=== PATIENT | female | born 1990 | race Caucasian/White ===

== ENCOUNTER 2020-02-14 15:40 | Outpatient (RCR) | payer OTHER, SELFPAY ==
[2020-02-14 16:30] VITALS: BP 131/73; PULSE 96
== END 2020-04-01 15:21 | disposition home or self-care (01) ==
LOC: ANHOBOP 15:40
PROVIDERS: Visit Provider Obstetrics & Gynecology
DX: O99.213 Obesity complicating pregnancy, third trimester (principal); E66.9 Obesity, unspecified; Z3A.33 33 weeks gestation of pregnancy
CPT/HCPCS: 59025

== ENCOUNTER 2020-03-30 18:54 | Inpatient (IN) | payer OTHER, SELFPAY ==
[2020-03-30] VITALS (13 sets, daily range): BP systolic 98–148; BP diastolic 53–78; PULSE 81–97; RESP 20; TEMP 36.3–36.4; BMI 48.4
--- NOTE | 2020-03-30 18:54 | LDADM ---
This patient, Katy Jane, was admitted to Labor/Delivery/Recovery 106 on 03/30/20 at 18:54. Plans for labor, pain management and were discussed with patient. Patient/family oriented to hospital policies and general routines including ID bracelet, bed and alarms, visiting hours, pain management, procedures, bathroom and other care routines, personal items, smoking policy, room service/diet and guest tray routines, security routines, and visiting hours. Patient/Family are encouraged to report perceived risks to care and to ask questions if they do not understand what they are told or what they should do. See OBIX for further documentation.
[2020-03-30] MEDS: AMPICILLIN 2 GM/NS 100 ML 2 GM/100 ML BAG IVPB (19:36)
[2020-03-30 19:37] LABS: Basophils Absolute Auto 0.1 K/mm3 (0.0-0.1); Basophils Percent Auto 0.5 % (0.2-1.2); Eosinophils Absolute Auto 0.3 K/mm3 (0-0.3); Eosinophils Percent Auto 2.2 % (0-4.4); Hemoglobin 10.3 g/dL (12.0-15.0); Immature Granulocyte Absolute 0.15 K/mm3 (0.00-0.031); Immature Granulocyte Percent A 1.2 % (0-0.5); Lymphocytes Absolute Auto 1.73 K/mm3 (0.9-3.2); Lymphocytes Percent Auto 13.3 % (18.3-44.2); Mean Corpuscular HGB Conc 32.2 g/dl (32-36); Mean Corpuscular Hemoglobin 25.4 pg (26-34); Mean Corpuscular Volume 78.8 fl (80-100); Mean Platelet Volume 9.5 fl (7.4-10.4); Monocytes Absolute Auto 0.9 K/mm3 (0.1-0.6); Monocytes Percent Auto 6.7 % (2.6-8.5); Neutrophils Absolute Auto 9.9 K/mm3 (1.3-6.7); Neutrophils Percent Auto 76.1 % (45.5-73.1); Platelet Count Result 365 k/mm3 (150-375); Red Blood Count 4.06 M/mm3 (4.2-5.4); Red Cell Distribution Width 16.9 % (11.5-14.5)
[2020-03-30] MEDS: LACTATED RINGERS 1,000 ML 125 ML IV CONT (19:37)
[2020-03-30] MEDS: DINOPROSTONE 10 MG VAG INSERT VAGINAL (19:55)
[2020-03-30] MEDS: AMPICILLIN 1 GM/NS 50 ML 1 GM/50 ML BAG IVPB (23:32)
[2020-03-31] VITALS (109 sets, daily range): BP systolic 100–141; BP diastolic 44–81; PULSE 64–104; RESP 20; TEMP 36–36.9; O2SAT 96–100
[2020-03-31] MEDS: AMPICILLIN 1 GM/NS 50 ML 1 GM/50 ML BAG IVPB ×5 (03:22→19:47)
[2020-03-31] MEDS: fentaNYL CITRATE INJ (*CRX) 100 MCG/2 ML VIAL 50 MCG IV PUSH (05:57)
[2020-03-31] MEDS: fentaNYL CITRATE INJ (*CRX) 100 MCG/2 ML VIAL IV PUSH (07:18)
--- NOTE | 2020-03-31 07:48 | WPDOBADMIT ---
Obstetrics - Admit Note Admission Note: record reviewed. No pertinent additions to the history and/or any subsequent changes in the physical findings that are not consistent with the expected course of the were found. 40 + weeks gestation complicated by obesity and +GBS Additions to the history and/or subsequent changes in the physical findings follow. None.
--- NOTE | 2020-03-31 07:57 | WPDANESEPP ---
Anes - Eval Pre Procedure Procedure: Labor epidural Date/Time: 03/31/20 07:57 Surgeon: jovany Preop Diagnosis: pain during labor Pre Op Diagnosis: IOL Patient Data Age: 29 Gender: F Height: 1.68 m Weight: 136.3 kg Last Vital Signs Temp 36.1 C L 03/31/20 03:30 Pulse 76 03/31/20 05:56 Resp 20 03/31/20 03:30 BP 134/69 03/31/20 05:56 Allergies Allergy/AdvReac Type Severity Reaction Status Date / Time No Known Allergies Allergy Unknown Verified 08/20/03 17:12 Home Medications Medication Instructions Recorded Confirmed Type PNV cmb#95-ferrous fumarate-FA 1 tablet PO DAILY 03/06/20 03/06/20 History [] Laboratory Tests 03/30/20 03/30/20 03/30/20 19:30 19:30 19:30 WBC 13.0 K/mm3 H K/mm3 (4.5-10.0) RBC 4.06 M/mm3 L M/mm3 (4.2-5.4) Hgb 10.3 g/dL L g/dL (12.0-15.0) Hct 32.0 % L % (37.0-47.0) MCV 78.8 fl L fl (80-100) MCH 25.4 pg L pg (26-34) MCHC 32.2 g/dl g/dl (32-36) RDW 16.9 % H % (11.5-14.5) Plt Count 365 k/mm3 k/mm3 (150-375) MPV 9.5 fl fl (7.4-10.4) Immature Gran % (Auto) 1.2 % H % (0-0.5) Neut % (Auto) 76.1 % H % (45.5-73.1) Lymph % (Auto) 13.3 % L % (18.3-44.2) [place] % (Auto) 6.7 % % (2.6-8.5) Eos % (Auto) 2.2 % % (0-4.4) Baso % (Auto) 0.5 % % (0.2-1.2) Lymph # (Auto) 1.73 K/mm3 K/mm3 (0.9-3.2) [place] # (Auto) 0.9 K/mm3 H K/mm3 (0.1-0.6) Eos # (Auto) 0.3 K/mm3 K/mm3 (0-0.3) Baso # (Auto) 0.1 K/mm3 K/mm3 (0.0-0.1) Abs Immat Gran (auto) 0.15 K/mm3 H K/mm3 (0.00-0.031) Absolute Neuts (auto) 9.9 K/mm3 H K/mm3 (1.3-6.7) Absolute Nucleated RBC 0.0 K/mm3 K/mm3 (0.0-0.012) Nucleated RBC % 0.0 % % (0.0-0.2) RPR Pending Blood Type O Positive Antibody Screen Negative Patient hx anesthesia problems: none Family hx anesthesia problems: none PMFSH Past Medical History Medical History (Updated 03/31/20 @ 07:58 by Gayle Briggs CRNA) IUP (intrauterine ), incidental Morbid obesity with BMI of 50.0-59.9, adult Social History Social History Smoking status: Former smoker Smoking end date: 03/30/20 Substance use: never Gender identity (if verbalized by the patient): Female Spiritual care concerns: No Exam Day of Procedure 03/31/20 07:57
[2020-03-31] MEDS: OXYTOCIN 30 UNITS/NS 500 ML 30 UNITS/500 ML BAG 6 UNITS IV CONT (08:10)
[2020-03-31 08:24] LABS: Rapid Plasma Reagin Non-Reactive (NonReactive)
[2020-03-31] MEDS: LACTATED RINGERS 1,000 ML 999 ML IV CONT ×2 (10:23→16:33)
[2020-03-31] MEDS: ONDANSETRON INJ 4 MG/2 ML VIAL IV PUSH ×2 (12:02→17:51)
[2020-03-31] MEDS: FAMOTIDINE 20 MG/2 ML VIAL IV PUSH (18:40)
[2020-04-01] VITALS (169 sets, daily range): BP systolic 89–150; BP diastolic 44–132; PULSE 62–122; RESP 16–20; TEMP 35.5–37.7; O2SAT 93–100
[2020-04-01] MEDS: LACTATED RINGERS 1,000 ML 125 ML IV CONT (00:58)
[2020-04-01] MEDS: ONDANSETRON INJ 4 MG/2 ML VIAL IV PUSH (00:58)
[2020-04-01] MEDS: AMPICILLIN 1 GM/NS 50 ML 1 GM/50 ML BAG IVPB ×2 (00:58→04:46)
--- NOTE | 2020-04-01 07:18 | WPDANESEFPP ---
Anes - Eval Final PreProcedure Day of Procedure 04/01/20 07:18 Patient weight: morbidly obese Heart: regular rate and rhythm Lungs: clear to auscultation Airway: Mallampati scale class II Neurological: alert and oriented ASA classification: III Emergent: no Anesthetic plan: proceed Anesthesia type and monitoring: regional (use existing epid) epidural and standard monitoring Informed Consent: The patient's anesthetic plan and its attendant risks and benefits were discussed with the patient/family/POA. Questions were solicited and answers provided to the satisfaction of the patient/family/POA.
--- NOTE | 2020-04-01 07:22 | PM.OBPNVD ---
OB - PN: Subj Subjective Date/time seen: 04/01/20 07:22Patient is a 29-year-old female who presented for induction of labor and reached 4 cm. She has failed to advance beyond 4 cm over many hours. He has reassuring heart tones. She is afebrile. We have agreed to proceed with delivery. She understands the risks, benefits, and alternatives. She has completed the informed consent process. OB - PN: Obj Data Labs CBC & Chem 7: 03/30/20 19:30 Labs: Laboratory Results - last 24 hr 03/30/20 19:30 RPR Non-reactive OB - PN A/P Time Spent With Patient Time: Total time spent is greater than 50% in coordination of care (as documented) at patient's floor/unit and/or counseling patient:
[2020-04-01] MEDS: ceFAZolin 3 GM/D5W 100 ML 100 ML IVPB (07:25)
[2020-04-01] MEDS: KETOROLAC 30 MG/ML VIAL (*BKC) IV PUSH ×2 (08:00→13:57)
--- NOTE | 2020-04-01 08:28 | P.OP_ITS ---
Procedure Note - Detailed Date of procedure: 04/01/20 Pre-op diagnosis: IOL Term gestation, Failure to Progress Post-op diagnosis: same Procedure performed: low-transverse delivery Description of procedure: The patient was taken the operating room. She was prepped and draped in the dorsal supine position with leftward tilt after induction of spinal anesthetic. When anesthesia was found to be adequate a low- transverse skin incision was made and carried down to the level the fascia with the knife. The fascial incision was made at the midline with a scalpel. The fascial incision was extended laterally with Welch scissors. The fascia was tented upward superior and inferior with Mere clamps. The rectus muscles were dissected off bluntly. The rectus muscles at the midline. The preperitoneal fat was dissected bluntly at the superior aspect of the separate the rectus muscles. The peritoneal cavity was entered bluntly in the same area. The peritoneal incision was extended superior and inferior with good visualization of bladder. Bladder blade was inserted. A low-transverse incision was made on the uterus with the scalpel. It was carried down the level of the amniotic cavity with a knife. The amniotic cavity bluntly. The uterine incision was made laterally with blunt traction. The infant was delivered. The cord was clamped and cut. The infant was handed off to waiting pediatric staff. Cord bloods were obtained. The placenta was removed manually. The uterus was exteriorized. Uterus cleared of all clots and debris. Uterus closed in 0 Vicryl in a running locked fashion. An imbricating layer of 0 Vicryl was also placed on the to bolster the closure. The uterus was returned to the abdomen. The gutters were cleared of all clots and debris. The fascia was closed 0 Vicryl in a running fashion. Subcutaneous tissue was irrigated and bleeding areas were cauterized. The skin was closed with subcuticular absorbable arsen. The incision was covered with derma ramos. The patient tolerated the procedure well. She was taken recovery room stable condition. Sponge, lap, needle counts were correct x2. Anesthesia: spinal Surgeon: Maye Cho MD Estimated blood loss (mL): 350 Drains: No Packing: No Pathology: none sent Complications: No immediate complications Condition: stable Disposition: floor Findings: Normal maternal anatomy. Average size with normal Apgars.
--- NOTE | 2020-04-01 10:43 | OBPPTRN ---
Patient transferred to post room #292 via stretcher at 1043. Support person present. Oriented to unit, room, information board, rooming in, admission packet and security measures. Patient verbalizes understanding.
[2020-04-01] MEDS: OXYTOCIN 30 UNITS/NS 500 ML 30 UNITS/500 ML BAG 125 UNITS IV CONT (11:30)
[2020-04-01] MEDS: HYDROcodone/acetaminophen (*CRX) 5-325 MG TABLET 1 TAB PO ×3 (13:57→23:06)
--- NOTE | 2020-04-01 14:25 | PC.NURSE ---
Consulted with patient, mother reports infant is eagerly waking and latching without difficulties or discomfort. Reviewed infant feeding cues, frequencies, duration of feedings, feeding elimination flow sheet, and signs of adequate intake. Demonstrated stimulation techniques to wake for feeding. Assisted with infant to breast. Reviewed positioning/alignment in cross cradle, holding breast in U hold and guided asymmetrical latch on. Discussed rational for each. was able to latch correctly. nursed eagerly, with steady draws and frequent swallowing noted. Reviewed signs of a correct latch, effective nursing and suck swallow ratio. Infant was able to maintain latch without discomfort to mother. Nipple care reviewed. Advised to stimulate to keep infant awake and nursing effectively for increased intake and to assist with maintaining deep latch. Demonstrated how to adjust latch more deeply while feeding. Instructed mother to call out for RN assistance if she is unable to latch for feeding or she has discomfort with nursing. Instructed feeding should be initiated three hours from start of last feeding or if feeding cues are noted before. Mother voiced understanding of information shared.
[2020-04-01] MEDS: DEXTROSE 5%/0.45% SOD CHL 1,000 ML 125 ML IV CONT (15:17)
[2020-04-01] MEDS: DOCUSATE SODIUM 100 MG CAPSULE PO (17:24)
[2020-04-01] MEDS: IBUPROFEN 600 MG TABLET PO (23:06)
[2020-04-01] MEDS: ENOXAPARIN 40 MG/0.4 ML SYRINGE SUB-Q (23:07)
[2020-04-02 04:25] VITALS: BP 118/81; PULSE 81; RESP 16; TEMP 36.8
[2020-04-02] MEDS: IBUPROFEN 600 MG TABLET PO ×3 (04:25→22:10)
[2020-04-02] MEDS: HYDROcodone/acetaminophen (*CRX) 5-325 MG TABLET 1 TAB PO ×5 (04:25→22:11)
[2020-04-02 05:10] LABS: Basophils Percent Auto 0.4 % (0.2-1.2); Eosinophils Absolute Auto 0.1 K/mm3 (0-0.3); Eosinophils Percent Auto 0.5 % (0-4.4); Hematocrit 26.1 % (37.0-47.0); Hemoglobin 8.4 g/dL (12.0-15.0); Immature Granulocyte Absolute 0.13 K/mm3 (0.00-0.031); Immature Granulocyte Percent A 1.4 % (0-0.5); Lymphocytes Absolute Auto 1.12 K/mm3 (0.9-3.2); Lymphocytes Percent Auto 12.2 % (18.3-44.2); Mean Corpuscular HGB Conc 32.2 g/dl (32-36); Mean Corpuscular Hemoglobin 25.6 pg (26-34); Mean Corpuscular Volume 79.6 fl (80-100); Mean Platelet Volume 9.7 fl (7.4-10.4); Monocytes Absolute Auto 0.7 K/mm3 (0.1-0.6); Neutrophils Absolute Auto 7.1 K/mm3 (1.3-6.7); Neutrophils Percent Auto 77.5 % (45.5-73.1); Platelet Count Result 263 k/mm3 (150-375); Red Blood Count 3.28 M/mm3 (4.2-5.4); White Blood Count 9.2 K/mm3 (4.5-10.0)
[2020-04-02 08:00] VITALS: BP 135/93; PULSE 101; RESP 16; RESP 18; TEMP 36.1
[2020-04-02] MEDS: SIMETHICONE 80 MG TAB.CHEW PO ×2 (08:32→12:41)
[2020-04-02] MEDS: POLYSACCHARIDE IRON COMPLEX 150 MG CAPSULE PO ×2 (08:32→16:27)
[2020-04-02] MEDS: MULTIVIT/MIN/PREN/FOL AC/IRON TABLET 1 TAB PO (08:32)
[2020-04-02] MEDS: DOCUSATE SODIUM 100 MG CAPSULE PO ×2 (08:32→16:28)
--- NOTE | 2020-04-02 08:53 | PM.OBPNVD ---
OB - PN: Subj Subjective Date/time seen: 04/02/20 08:53 Patient comments: no complaints, pain well controlled, tolerating diet and flatus present OB - PN: Obj Data Labs CBC & Chem 7: 04/02/20 04:16 Labs: Laboratory Results - last 24 hr 04/02/20 04:16 WBC 9.2 RBC 3.28 L Hgb 8.4 L Hct 26.1 L MCV 79.6 L MCH 25.6 L MCHC 32.2 RDW 17.0 H Plt Count 263 MPV 9.7 Immature Gran % (Auto) 1.4 H Neut % (Auto) 77.5 H Lymph % (Auto) 12.2 L [place] % (Auto) 8.0 Eos % (Auto) 0.5 Baso % (Auto) 0.4 Lymph # (Auto) 1.12 [place] # (Auto) 0.7 H Eos # (Auto) 0.1 Baso # (Auto) 0.0 Abs Immat Gran (auto) 0.13 H Absolute Neuts (auto) 7.1 H Absolute Nucleated RBC 0.0 Nucleated RBC % 0.0 OB - PN A/P Plan day: 1 Comments: Post Op LTCS - no problems, routine recovery Time Spent With Patient Time: Total time spent is greater than 50% in coordination of care (as documented) at patient's floor/unit and/or counseling patient: Exam Const: General: cooperative, healthy appearing, comfortable and no acute distress Resp: Auscultation: no crackles, no rales, no rhonchi and no wheezes Cardio: Rhythm: regular rhythm Heart sounds: no click and no murmurs GI: Inspection: non-distended Auscultation: normal bowel sounds Extrem: General: normal to inspection, no pedal edema and no calf tenderness
--- NOTE | 2020-04-02 09:03 | WPDANLDPN2 ---
Anes-Prog Note L&D Date/Time: 04/02/20 09:03 Comfortable throughout: section Neuraxial method: spinal Epidural/Spinal procedure site: clean & non-tender Neuro status: Neuro function grossly intact. Cardiovascular status: normal Respiratory status: normal Airway patency: baseline Mental status: baseline Post-Op hydration status: normal Vital Signs: Last Vital Signs Temp 36.8 C 04/02/20 04:25 Pulse 81 04/02/20 04:25 Resp 16 04/02/20 04:25 BP 118/81 04/02/20 04:25 Pulse Ox 99 04/01/20 14:00 Pain score (VAS): 0 I/O: Intake & Output 04/01/20 04/02/20 04/02/20 23:59 07:59 15:59 Intake Total 1000 Output Total 3250 2300 Balance -2250 -2300 Post-procedural complaints: none Patient feedback: Patient satisfied with anesthetic care.
--- NOTE | 2020-04-02 09:03 | WPDANLDNPN2 ---
Anes-Prog Note L&D-Neuraxial Date/Time: 04/02/20 09:03 Neuraxial medications: intrathecal PF morphine Opiod-related complaints: none Patient feedback: Patient satisfied with post-operative pain management.
--- NOTE | 2020-04-02 14:00 | PC.NURSE ---
Consulted with patient, mother states she has been supplementing and/or supplementing after breastfeedings. Mother is concerned is not getting enough. Mother states infant is freq sleepy and does not feed on both breasts. Reviewed this is normal and infant may not take both breasts per feeding. Reviewed adequate sign of intake for the . Stressed mother may supplement if she chooses. Reviewed infant feeding cues, frequencies, duration of feedings, feeding elimination flow sheet, and signs of adequate intake. Demonstrated stimulation techniques to wake for feeding. Assisted with to breast. Reviewed positioning/alignment, holding breast and asymmetrical latch on. Within a few attempts was able to latch correctly. nursed eagerly, with steady draws and frequent swallowing noted. Reviewed signs of a correct latch, effective nursing and suck swallow ratio. was able to maintain latch without discomfort to mother. Nipple care reviewed. Advised to stimulate while feeding to keep infant awake and nursing effectively for increased intake and assist with maintaining deep latch. Demonstrated how to adjust latch more deeply while feeding. Instructed mother to call out for RN assistance if she is unable to latch infant for feeding or she has discomfort with nursing. Instructed feeding should be initiated three hours from start of last feeding or if feeding cues are noted before. Mother voiced understanding of information shared.
[2020-04-02 19:45] VITALS: BP 130/75; PULSE 103; RESP 18; TEMP 36.4; O2SAT 98
[2020-04-02] MEDS: ENOXAPARIN 40 MG/0.4 ML SYRINGE SUB-Q (23:42)
[2020-04-03] MEDS: HYDROcodone/acetaminophen (*CRX) 5-325 MG TABLET 1 TAB PO ×2 (04:27→09:36)
[2020-04-03] MEDS: IBUPROFEN 600 MG TABLET PO (04:28)
[2020-04-03 07:00] VITALS: BP 137/71; PULSE 75; RESP 20; TEMP 36.2
--- NOTE | 2020-04-03 08:57 | P.DS_ITS ---
DS: Admitting Diagnosis Admitting Diagnosis Admitting Diagnosis: IOL DS: Discharge Diagnosis Discharge Diagnosis (1) delivery delivered: Code(s): O82 - Encounter for delivery without indication Status: Acute (2) Failure to progress in labor: Code(s): O62.2 - Other uterine inertia Status: Acute OB - DS: Summary OB Procedures : NST and Ultrasound OB Procedures Intrapartum: OB Procedures: : None Peripartum Data Infant Delivery Method: Natural Vaginal Procedures: Procedures Operation Date: 04/01/20 07:30 Actual Procedures Side Surgeon p Section Maye Cho MD Time Spent with Patient Time attestation: Total time spent providing and/or coordinating discharge services: Discharge Plan Discharge Discharging Clinician: Maye Cho Patient Disposition: Home, Self-Care Activity: pelvic rest Diet: regular Patient Instructions: Antibiotic Form Stand Alone Forms: General Discharge Information Follow-up/Referrals: Maye Coh MD [Physician] - Discharge Medications: No Action PNV cmb#95-ferrous fumarate-FA [] 28 mg iron- 800 mcg Tablet 1 tablet PO DAILY RF: 0 Date of admission: 03/30/20 18:54 Primary Care Provider: PHYSICIAN,PIE ICER MACHINE Admitting Provider: Maye Cho Attending physician on admission: Maye Cho
--- NOTE | 2020-04-03 08:57 | PM.OBPNVD ---
OB - PN: Subj Subjective Date/time seen: 04/03/20 08:57 Patient comments: no complaints, pain well controlled, incisional pain, tolerating diet and flatus present OB - PN: Obj Data Labs CBC & Chem 7: 04/02/20 04:16 OB - PN A/P Plan day: 2 Plan: routine care Comments: POD#2 LTCS - no problems, to d/c Time Spent With Patient Time: Total time spent is greater than 50% in coordination of care (as documented) at patient's floor/unit and/or counseling patient: Exam Const: General: comfortable, no acute distress and alert Resp: Effort & Inspection: normal respiratory effort Auscultation: no crackles, no rales and no rhonchi Cardio: Rate: regular rate Heart sounds: no click, no murmurs and no rubs GI: Inspection: non-distended GI Palp: No Tenderness to palpation present (GI) Auscultation: normal bowel sounds Other: Incision - CDI Extrem: General: normal to inspection, no pedal edema and no calf tenderness
[2020-04-03] MEDS: POLYSACCHARIDE IRON COMPLEX 150 MG CAPSULE PO (09:35)
[2020-04-03] MEDS: MULTIVIT/MIN/PREN/FOL AC/IRON TABLET 1 TAB PO (09:35)
[2020-04-03] MEDS: DOCUSATE SODIUM 100 MG CAPSULE PO (09:36)
[2020-04-03] MEDS: TETANUS,DIPHTHERIA,AC PERTUSSIS ADULT (0.5 ML) BOOSTRIX IM (09:36)
--- NOTE | 2020-04-05 21:24 | PC.NURSE ---
04/05/2020 at approximately 1950. This discharged patient Katy Jane, phone number [phone], called and said she is unable to come to her follow up appointment tomorrow, April 06 at 10:00. I told the patient that it is VERY IMPORTANT for her to keep the appointments with her OB doctor AND the baby's pediatrican. And, if ANY QUESTIONS OR NEEDS arise in the meantime regarding herself or the baby she should call her or baby's doctor immediately. Patient states understanding.
== END 2020-04-03 12:45 | disposition home or self-care (01) | DRG 540 ==
LOC: ANHLDR 04-01 08:56 → ANHOB2 04-01 10:49
PROVIDERS: Advanced Practice Midwife; Admitting Provider Obstetrics & Gynecology; Visit Provider Obstetrics & Gynecology
PROC: (CPT 59514; principal; 2020-04-01 07:30)
DX: O62.2 Other uterine inertia (principal); O99.824 Streptococcus B carrier state complicating childbirth; O69.81X0 Labor and delivery complicated by cord around neck, without compression, not applicable or unspecified; O99.214 Obesity complicating childbirth; E66.01 Morbid (severe) obesity due to excess calories; Z3A.40 40 weeks gestation of pregnancy; Z37.0 Single live birth; Z87.891 Personal history of nicotine dependence
CPT/HCPCS: 36415; 85025; 86592; 86850; 86900; 86901; 88720; 90715; A9270; J0131; J0290; J0690; J1650; J1885; J2175; J2274; J2405; J2590; J2795; J3010; J7120

== ENCOUNTER 2022-07-28 16:34 | Outpatient (CLI) | payer OTHER, SELFPAY ==
[2022-07-28 17:00] LABS: Hematocrit 34.2 % (37.0-47.0); Hemoglobin 10.8 g/dL (12.0-15.0); Mean Corpuscular HGB Conc 31.6 g/dl (32-36); Mean Corpuscular Hemoglobin 24.8 pg (26-34); Mean Corpuscular Volume 78.4 fl (80-100); Mean Platelet Volume 9.4 fl (7.4-10.4); Platelet Count Result 340 k/mm3 (150-375); Red Blood Count 4.36 M/mm3 (4.2-5.4); Red Cell Distribution Width 16.9 % (11.5-14.5); White Blood Count 14.4 K/mm3 (4.5-10.0)
[2022-07-29 14:20] LABS: Rapid Plasma Reagin Non-Reactive (NonReactive)
== END 2022-07-28 16:35 | disposition home or self-care (01) ==
LOC: ANHLAB 16:36
PROVIDERS: Visit Provider Obstetrics & Gynecology
DX: Z34.93 Encounter for supervision of normal pregnancy, unspecified, third trimester (principal); Z3A.00 Weeks of gestation of pregnancy not specified
CPT/HCPCS: 36415; 85027; 86592; 86850; 86900; 86901

== ENCOUNTER 2022-07-29 10:01 | Inpatient (IN) | payer OTHER, SELFPAY ==
[2022-07-29] VITALS (44 sets, daily range): BP systolic 98–133; BP diastolic 53–99; PULSE 59–92; RESP 15–20; TEMP 36.2–36.5; O2SAT 97–100; BMI 50.1
[2022-07-29] MEDS: LACTATED RINGERS 1,000 ML 125 ML IV CONT (11:02)
--- NOTE | 2022-07-29 11:15 | LDADM ---
This patient, Katy Jane, was admitted to OB 117 on 07/29/22 at 10:01. Plans for labor, pain management and were discussed with patient. Patient/family oriented to hospital policies and general routines including ID bracelet, bed and alarms, visiting hours, pain management, procedures, bathroom and other care routines, personal items, smoking policy, room service/diet and guest tray routines, security routines, and visiting hours. Patient/Family are encouraged to report perceived risks to care and to ask questions if they do not understand what they are told or what they should do.
--- NOTE | 2022-07-29 11:28 | WPDANESEPPF ---
Anes - Initial Pre Proc Eval Procedure: Operation Date: 07/29/22 12:00 Proposed Procedures p Repeat Section with Bilateral Salpingectomy - Maye Cho MD Date/Time: 07/29/22 11:28 Surgeon: Maye Cho MD Pre Op Diagnosis: C/S Patient Data Age: 32 Gender: F Height: 1.68 m Weight: 140.8 kg Last Vital Signs Pulse 84 07/29/22 10:51 BP 120/68 07/29/22 10:51 O2 Del Method Room Air 07/29/22 11:06 Allergies Allergy/AdvReac Type Severity Reaction Status Date / Time No Known Allergies Allergy Unknown Verified 07/15/22 14:36 Home Medications Medication Instructions Recorded Confirmed Type vit no.95-ferrous 1 tablet PO DAILY 03/06/20 07/29/22 History fumarate 28 mg-folic acid 800 mcg tablet () sertraline 100 mg tablet 100 mg PO DAILY 07/15/22 07/15/22 History Patient hx anesthesia problems: none Family hx anesthesia problems: none Results Review: All pre-operative results and documents have been reviewed as part of the pre-operative evaluation. [facility] Past Medical History Medical History IUP (intrauterine ), incidental Morbid obesity with BMI of 50.0-59.9, adult Family History Family History Mother Breast cancer Father Diabetes mellitus Heart disease Social History Social History Smoking status: Former smoker Smoking end date: 03/30/20 Substance use: never Gender identity (if verbalized by the patient): Female Spiritual care concerns: No Anes - Eval Final PreProcedure Day of Procedure 07/29/22 11:28 Patient weight: super morbidly obese Heart: regular rate and rhythm Lungs: clear to auscultation Airway: Mallampati scale class II Neurological: alert and oriented Last oral intake: >/= 8 hours ASA classification: III Emergent: no Anesthetic plan: proceed Anesthesia type and monitoring: regional spinal and standard monitoring Results Review: All pre-operative results and documents have been reviewed as part of the pre-operative evaluation. Informed Consent: The patient's anesthetic plan and its attendant risks and benefits were discussed with the patient/family/POA. Questions were solicited and answers provided to the satisfaction of the patient/family/POA.
--- NOTE | 2022-07-29 12:02 | PM.IMHP ---
H&P: HPI History of Present Illness Date/Time: 07/29/22 12:02 Chief Complaint: Term Narrative: this patient is a 32-year-old multiparous female with a previous delivery. She desires sterilization. She is term. We are going to proceed with delivery today along with bilateral tubal ligation. She understands that this surgery has risk. She understands that injuries may occur that result in hospitalization, more surgery, and severe illness. She understands there is risk of hemorrhage and infection. She denies any nausea, vomiting, fever, chills. She denies any chest pain or shortness of breath. Review of Systems Review of Systems: All systems reviewed & are unremarkable except as noted in HPI and below Constitutional: Constitutional: Denies chills, Denies fatigue, Denies fever(s) and Denies weakness Eyes: Eyes: Denies blurry vision, Denies change in vision, Denies loss of peripheral vision, Denies loss of vision, Denies other visual disturbances and Denies eye pain ENT: Denies vertigo, Denies dizziness, Denies hearing loss, Denies mouth pain, Denies nasal obstruction, Denies neck mass and Denies neck pain Cardiovascular: Cardiovascular: Denies chest pain, Denies diaphoresis, Denies syncope, Denies leg edema and Denies dyspnea Respiratory: Respiratory: Denies chest congestion, Denies cough, Denies hemoptysis, Denies dyspnea and Denies wheezing Gastrointestinal: Gastrointestinal: Denies abdominal pain, Denies constipation, Denies diarrhea, Denies nausea and Denies vomiting Genitourinary: Genitourinary: Denies hematuria, Denies change in libido, Denies nocturia, Denies genital lesions, Denies flank pain and Denies urinary urgency Musculoskeletal: Musculoskeletal: Denies abnormal gait, Denies back pain, Denies myalgias, Denies arthralgias, Denies joint swelling, Denies muscle weakness and Denies neck pain Integumentary/Breasts: Skin/Breast: Denies swelling, Denies breast pain, Denies breast mass, Denies dry skin, Denies nipple discharge, Denies unusual bruising and Denies jaundice Neurologic: Denies Neuro-related abnormal movements, Denies Abnormal speech present, Denies abnormal gait, Denies behavioral changes, Denies confusion, Denies vertigo, Denies dizziness, Denies syncope, Denies loss of vision, Denies memory loss, Denies convulsions and Denies weakness Psychiatric: Psychiatric: Denies abnormal sleep pattern, Denies behavioral changes, Denies change in libido, Denies confusion, Denies depression, Denies anhedonia and Denies memory loss Endocrine: Endocrine: Reports no additional endocrine complaints, Denies change in libido and Denies fatigue Hematologic/Lymphatic: Hematologic/Lymphatic: Reports no additional hematologic/lymphatic complaints Allergic/Immunologic: Allergic/Immunologic: Reports no additional allergic/immunologic complaints and Denies wheezing PMFSH Past Medical History Medical History IUP (intrauterine ), incidental Morbid obesity with BMI of 50.0-59.9, adult Family History Family History Mother Breast cancer Father Diabetes mellitus Heart disease Social History Social History Years smoked: 5 Smoking status: Former smoker Second hand tobacco smoke exposure: Yes Smoking end date: 03/30/20 Substance use: never Lack of Transportation: No Lack of Food: Never True Current Housing: I Have Housing Concerned About Future Housing: No Difficulty Paying Gas/Electric Bills: No Difficulty Paying for Meds: No Currently Unemployed: YES Education: High School Diploma/GED Difficulty w/ Childcare or Family Care: No Gender identity (if verbalized by the patient): Female Spiritual care concerns: No Meds Home Medications and Allergies Home Medications Medication Instructio
--- NOTE | 2022-07-29 12:05 | WPDHPUPDATE1 ---
History and Physical Update Update Date/Time: 07/29/22 12:05 History and Physical has been reviewed, including an updated exam of the patient. There are NO changes in the patient's condition. Risks, benefits, and alternatives have been discussed and questions answered. Patient agrees to proceed with procedure.
--- NOTE | 2022-07-29 13:30 | W.PM.PROC2 ---
Procedure Note - Detailed Date of Procedure 07/29/22 Pre-op Diagnosis previous C/S Post-op Diagnosis Same Procedure Performed Low-transverse section Surgeon Maye Cho MD Anesthesia Spinal Indications previous Findings Normal gestational maternal anatomy, average size , normal Apgars. Description of Procedure The patient was taken the operating room. She was prepped and draped in dorsal supine position with a leftward tilt. This was done after spinal anesthetic was applied. A low-transverse skin incision was made and carried down till of the fascia with the knife. The fascial incision was made with the knife. The fascial incision was extended laterally with Welch scissors. The fascia was tented upward superiorly and inferiorly the rectus muscles were dissected off bluntly. The rectus muscles were the midline. The preperitoneal fat and peritoneum were dissected open bluntly at the superior aspect of the rectus muscles. The peritoneal incision was extended superior and inferior with good position of bladder. The uterine incision was made with a scalpel down to the level of the amniotic cavity. The amniotic cavity was entered bluntly. The was delivered. The cord was clamped and cut and the was handed off to waiting pediatric staff. Cord bloods were obtained. The placenta was removed manually. The uterus was exteriorized. The uterus was cleared of all clots, debris and membranes. The uterus was closed in 0 Vicryl running lock fashion. An imbricating over a was placed along the incision line as well. The uterus was returned to the abdomen. The gutters were cleared of all clots and debris. The fascia was closed with 0 Vicryl running fashion. The subcutaneous tissue was irrigated pinpoint bleeders were cauterized. The skin was closed with subcuticular absorbable arsen. The skin incision line was covered with glue. The patient tolerated the procedure well. She has taken recovery room in stable condition. Sponge lap and needle counts were correct x2. Estimated Blood Loss 520 Complications No immediate complications Condition Stable Disposition PACU
[2022-07-29] MEDS: OXYTOCIN 30 UNITS/NS 500 ML 30 UNITS/500 ML BAG 125 UNITS IV CONT (15:15)
--- NOTE | 2022-07-29 15:39 | OBPPTRN ---
Patient transferred to post room # 281 via stretcher. Oriented to unit, room, information board, rooming in, admission packet and security measures. Patient verbalizes understanding.
[2022-07-29] MEDS: DOCUSATE SODIUM 100 MG CAPSULE PO (16:52)
[2022-07-29] MEDS: KETOROLAC 30 MG/ML VIAL (*BKC) IV PUSH (16:52)
[2022-07-29] MEDS: HYDROcodone/acetaminophen (*CRX) 5-325 MG TABLET 1 TAB PO ×2 (16:53→18:36)
[2022-07-30] MEDS: IBUPROFEN 600 MG TABLET PO ×3 (04:06→21:01)
[2022-07-30] MEDS: HYDROcodone/acetaminophen (*CRX) 5-325 MG TABLET 1 TAB PO ×2 (04:06→09:00)
[2022-07-30] MEDS: SIMETHICONE 80 MG TAB.CHEW PO ×3 (04:07→21:01)
[2022-07-30 04:30] VITALS: BP 119/69; PULSE 86; RESP 18; TEMP 36.4; O2SAT 100
[2022-07-30 05:25] LABS: Basophils Absolute Auto 0.1 K/mm3 (0.0-0.1); Basophils Percent Auto 0.6 % (0.2-1.2); Eosinophils Absolute Auto 0.4 K/mm3 (0-0.3); Eosinophils Percent Auto 3.3 % (0-4.4); Hematocrit 29.2 % (37.0-47.0); Immature Granulocyte Absolute 0.12 K/mm3 (0.00-0.031); Immature Granulocyte Percent A 1.1 % (0-0.5); Lymphocytes Absolute Auto 1.42 K/mm3 (0.9-3.2); Lymphocytes Percent Auto 12.6 % (18.3-44.2); Mean Corpuscular HGB Conc 30.8 g/dl (32-36); Mean Corpuscular Hemoglobin 24.5 pg (26-34); Mean Corpuscular Volume 79.6 fl (80-100); Mean Platelet Volume 9.5 fl (7.4-10.4); Monocytes Absolute Auto 0.9 K/mm3 (0.1-0.6); Monocytes Percent Auto 7.9 % (2.6-8.5); Neutrophils Absolute Auto 8.4 K/mm3 (1.3-6.7); Neutrophils Percent Auto 74.5 % (45.5-73.1); Platelet Count Result 276 k/mm3 (150-375); Red Blood Count 3.67 M/mm3 (4.2-5.4); White Blood Count 11.3 K/mm3 (4.5-10.0)
[2022-07-30 08:45] VITALS: BP 135/79; PULSE 85; RESP 16; TEMP 36.8; O2SAT 98
--- NOTE | 2022-07-30 08:56 | WPDANLDPN2 ---
Anes-Prog Note L&D Date/Time: 07/30/22 08:56 Comfortable throughout: section Neuraxial method: spinal Epidural/Spinal procedure site: clean & non-tender Neuro status: Neuro function grossly intact. Cardiovascular status: normal Respiratory status: normal Airway patency: baseline Mental status: baseline Post-Op hydration status: normal Vital Signs: Last Vital Signs Temp 36.4 C L 07/30/22 04:30 Pulse 86 07/30/22 04:30 Resp 18 07/30/22 04:30 BP 119/69 07/30/22 04:30 Pulse Ox 100 07/30/22 04:30 O2 Del Method Room Air 07/30/22 04:30 Pain score (VAS): 0 I/O: Intake & Output 07/29/22 07/30/22 07/30/22 23:59 07:59 15:59 Intake Total 1400 Output Total 1600 Balance -200 Post-procedural complaints: none Patient feedback: Patient satisfied with anesthetic care.
--- NOTE | 2022-07-30 08:57 | WPDANLDNPN2 ---
Anes-Prog Note L&D-Neuraxial Date/Time: 07/30/22 08:57 Neuraxial medications: intrathecal PF morphine Opiod-related complaints: none Patient feedback: Patient satisfied with post-operative pain management.
[2022-07-30] MEDS: MULTIVIT/MIN/PREN/FOL AC/IRON TABLET 1 TAB PO (09:00)
[2022-07-30] MEDS: DOCUSATE SODIUM 100 MG CAPSULE PO ×2 (09:00→16:26)
[2022-07-30] MEDS: POLYSACCHARIDE IRON COMPLEX 150 MG CAPSULE PO ×2 (09:00→16:26)
[2022-07-30] MEDS: SERTRALINE HCL 50 MG TABLET 100 MG PO (09:00)
[2022-07-30] MEDS: TETANUS,DIPHTHERIA,AC PERTUSSIS ADULT (0.5 ML) BOOSTRIX IM (09:02)
--- NOTE | 2022-07-30 09:39 | PM.OBPNVD ---
OB - PN: Subj Subjective Date/time seen: 07/30/22 09:39 s/p delivery day 1 OB - PN: Obj Data Labs 07/30/22 04:08 Labs: Laboratory Results - last 24 hr 07/30/22 04:08 WBC 11.3 H RBC 3.67 L Hgb 9.0 L Hct 29.2 L MCV 79.6 L MCH 24.5 L MCHC 30.8 L RDW 17.0 H Plt Count 276 MPV 9.5 Immature Gran % (Auto) 1.1 H Neut % (Auto) 74.5 H Lymph % (Auto) 12.6 L [place] % (Auto) 7.9 Eos % (Auto) 3.3 Baso % (Auto) 0.6 Lymph # (Auto) 1.42 [place] # (Auto) 0.9 H Eos # (Auto) 0.4 H Baso # (Auto) 0.1 Abs Immat Gran (auto) 0.12 H Absolute Neuts (auto) 8.4 H Absolute Nucleated RBC 0.0 Nucleated RBC % 0.0 OB - PN A/P Time Spent With Patient Time: Total time spent is greater than 50% in coordination of care (as documented) at patient's floor/unit and/or counseling patient: Review of Systems Review of Systems: All systems reviewed & are unremarkable except as noted in HPI and below Exam Narrative: Incision CDI Const: General: cooperative, healthy appearing and comfortable
[2022-07-30] MEDS: HYDROcodone/acetaminophen (*CRX) 10-325 MG TABLET 1 TAB PO ×3 (12:06→21:01)
[2022-07-30 12:10] VITALS: BP 140/82; PULSE 93; RESP 16; TEMP 36.4; O2SAT 96
[2022-07-30 20:00] VITALS: BP 123/77; PULSE 85; RESP 18; TEMP 36.1; O2SAT 99
[2022-07-31 08:00] VITALS: BP 132/84; PULSE 73; RESP 16; TEMP 36.6; O2SAT 99
[2022-07-31] MEDS: MULTIVIT/MIN/PREN/FOL AC/IRON TABLET 1 TAB PO (08:10)
[2022-07-31] MEDS: SERTRALINE HCL 50 MG TABLET 100 MG PO (08:10)
[2022-07-31] MEDS: IBUPROFEN 600 MG TABLET PO (08:10)
[2022-07-31] MEDS: HYDROcodone/acetaminophen (*CRX) 10-325 MG TABLET 1 TAB PO ×2 (08:10→11:11)
[2022-07-31] MEDS: POLYSACCHARIDE IRON COMPLEX 150 MG CAPSULE PO (08:10)
[2022-07-31] MEDS: DOCUSATE SODIUM 100 MG CAPSULE PO (08:10)
--- NOTE | 2022-07-31 10:08 | PM.OBPNVD ---
OB - PN: Subj Subjective Date/time seen: 07/31/22 10:08 s/p section day 2 OB - PN: Obj Data Labs 07/30/22 04:08 OB - PN A/P Plan day: 2 Plan: routine care and discharge home Time Spent With Patient Time: Total time spent is greater than 50% in coordination of care (as documented) at patient's floor/unit and/or counseling patient: Review of Systems Review of Systems: All systems reviewed & are unremarkable except as noted in HPI and below Exam Narrative: incision CDI Const: General: cooperative, healthy appearing and comfortable
--- NOTE | 2022-07-31 10:11 | PM.OBDSVD ---
DS: Admitting Diagnosis Discharge Date 07/31/22 Admitting Diagnosis rpt cearean section DS: Discharge Diagnosis Discharge Diagnosis (1) delivery delivered: Code(s): O82 - Encounter for delivery without indication Status: Acute OB - DS: Summary OB Procedures : None OB Procedures Intrapartum: OB Procedures: : None Peripartum Data Procedures: Procedures Operation Date: 07/29/22 12:00 Actual Procedure Side Surgeon p Section Not Applicable Maye Cho MD Time Spent with Patient Time attestation: Total time spent providing and/or coordinating discharge services: DS: Data Data Completed and Pending Pending studies at discharge: Pending at discharge 07/29/22 14:30 Surgical [PTH] Routine Discharge Plan Discharge Attending physician on discharge: Maye Cho Discharging Clinician: Anila Ayala Patient Disposition: Home, Self-Care Activity: pelvic rest Diet: regular Patient Instructions: Antibiotic Form Stand Alone Forms: General Discharge Information Follow-up/Referrals: Maye Cho MD [Physician] - 1 Week Discharge Medications: New hydrocodone-acetaminophen 5-325 mg Tablet 1 tablet PO Q3H PRN (Reason: Moderate Pain (4-6)) Qty: 25 0RF Continued PNV [id number] fumarate-FA [] 28 mg iron- 800 mcg Tablet 1 tablet PO DAILY sertraline 100 mg Tablet 100 mg PO DAILY Date of admission: 07/29/22 10:01 Primary Care Provider: UNKNOWN,DOCTOR Admitting Provider: Maye Cho Attending physician on admission: Maye Cho Condition: Stable
== END 2022-07-31 14:00 | disposition home or self-care (01) | DRG 540 ==
LOC: ANHOB2 07-31 11:06 → ANHLDR 08-02 09:57 → ANHOB2 08-02 09:57 → ANHOBPP 08-02 09:57
PROVIDERS: Admitting Provider Obstetrics & Gynecology; Visit Provider Advanced Practice Midwife
PROC: 10D00Z1 Extraction of Products of Conception, Low, Open Approach (ICD-10-PCS; CPT 59514; principal; 2022-07-29 12:00)
DX: O34.219 Maternal care for unspecified type scar from previous cesarean delivery (principal); O99.214 Obesity complicating childbirth; E66.01 Morbid (severe) obesity due to excess calories; O99.824 Streptococcus B carrier state complicating childbirth; Z30.2 Encounter for sterilization; Z37.0 Single live birth; Z3A.39 39 weeks gestation of pregnancy; Z87.891 Personal history of nicotine dependence
CPT/HCPCS: 36415; 85025; 88302; 88307; 90715; A9270; J0131; J1885; J2274; J2370; J2405; J2590; J7120